=== PATIENT | male | born 1950 | race Caucasian/White ===

== ENCOUNTER 2018-10-19 13:58 | Emergency (ER) | payer BC ==
[2018-10-19 14:12] VITALS: BP 129/82
--- NOTE | 2018-10-19 14:56 | EDPHY ---
H & P Stated Complaint: , decreased BM. eat/drink normal. had elevated wbc at pcp Time Seen by Provider: 10/19/18 14:28 HPI/ROS: Chief Complaint: Decreased bowel movements HPI: 68-year-old male being sent in by his primary care physician for evaluation decreased bowel movements. Patient states that for the last 5 days he has had decreased bowel movements. He has just had a small amount of grapes I stool occasionally with some mucus every day. Does not feeling is constipated. Is not having any abdominal pain. Did recently take 2 course of antibiotics in September for tooth infection, both ciprofloxacin and clindamycin. No nausea or vomiting. No fevers or chills. He was seen by his primary care physician yesterday who did blood tests on him. They were concerned because he had an elevation in his white blood cell count. He had a call from his physician today who asked him in the come to the emergency department for further evaluation. Patient has not have a history of similar episodes in the past. Does not have a history of abdominal surgeries in the past. Has a history only of hypertension. ROS: 10 systems were reviewed and were negative except those elements noted in the HPI. PMH: Hypertension Social History: No smoking, occasional alcohol, no recreational drug use Family History: non-contributory Physical Exam: Gen: Awake, Alert, No Distress HEENT: Nose: no rhinorrhea Eyes: PERRLA, EOMI Mouth: Moist mucosa Neck: Supple, no JVD Chest: nontender, lungs clear to auscultation Heart: S1, S2 normal, no murmur Abd: Bowel sounds normal, Soft, non-tender, no guarding Back: no CVA tenderness, no midline tenderness Ext: no edema, non-tender Skin: no rash Neuro: CN II-XII intact, Sensation grossly intact, Strength 5/5 in bilateral upper and lower extremities - Personal History Current Tetanus/Diphtheria Vaccine: Unsure Current Tetanus Diphtheria and Acellular Pertussis (TDAP): Unsure - Medical/Surgical History Other PMH: htn. laminectomy - Social History Smoking Status: Never smoked Constitutional: Initial Vital Signs Temperature (C) 37.2 C 10/19/18 14:06 Heart Rate 96 10/19/18 14:06 Respiratory Rate 18 10/19/18 14:06 Blood Pressure 129/82 H 10/19/18 14:06 O2 Sat (%) 94 04/05/19 14:06 O2 Delivery Mode Room Air Allergies/Adverse Reactions: [id number] Reductase Inhibitor Allergy (Verified 10/19/18 14:12) tamsulosin Allergy (Verified 10/19/18 14:12) Home Medications: Medication Instructions Recorded Lisinopril 09/01/09 Medical Decision Making - Diagnostics Imaging Results: Imaging Impressions Abdomen X-Ray 10/19/18 14:28 Impression: 1. Right nephrolithiasis unchanged since 2006. 2. Bowel pattern within normal limit. No obstruction or pneumoperitoneum. 3. Moderate constipation. ED Course/Re-evaluation: X-rays consistent with moderate constipation. I have reviewed the patient's laboratory evaluations. White blood cell count yesterday was 10.5. Patient has a completely soft and benign abdomen. There is no evidence of acute infectious or obstructive intra-abdominal process. Patient is comfortable. Plan will be to discharge with follow-up with primary care physician next week, return for any concerns. Patient start taking MiraLax as needed for constipation. Departure - Departure Disposition: Home, Routine, Self-Care Clinical Impression: Constipation Condition: Good Instructions: Constipation (DC), High Fiber Diet (ED) Additional Instructions: Increase the fiber in your diet, either through increasing high-fiber fruits and vegetables or adding a fiber supplement like Metamucil. Make sure to drink plenty of water every day. You may take MiraLax daily according to package instructions. If you feel constipated drink 1/2 bottle of magnesium citrate. Wait 1-2 hours. If you do not have a bowel movement after that time drink the 2nd half of the bottle. If you continues to be constipated you may use a Fleet's enema, available over- the-counter. Follow up with primary care physician in 3-4 days if symptoms are not improving. Referrals: Ever Hollins MD [Primary Care Provider] - As per Instructions
== END 2018-10-19 15:10 | disposition home or self-care (01) ==
LOC: CED 13:58
DX: K59.00 Constipation, unspecified (principal); I10 Essential (primary) hypertension; N20.0 Calculus of kidney
CPT/HCPCS: 74019-PO; 99283-ER